=== PATIENT | female | born 1995 | race Caucasian/White ===

== ENCOUNTER 2016-12-06 22:16 | Emergency (ER) | payer BC ==
[~2016-12-06 22:16] MED LIST: ALPR.5 PO; LO LTAB PO; MONT10TA2 PO; ZOLO50TA PO; ZYRT10CA PO
[2016-12-06 22:18] VITALS: BP 134/78; PULSE 99; RESP 16; TEMP 98.7; O2SAT 100
[2016-12-06] MEDS ORDERED: CETI10CH CHEW (22:46)
[2016-12-06] MEDS ORDERED: PHEN-556 PO (22:46)
[2016-12-06] MEDS ORDERED: PENI500T PO (22:57)
[2016-12-06] MEDS ORDERED: PENICILLIN V POTASSIUM 500 MG TAB PO ONE (23:00)
--- NOTE | 2016-12-06 23:02 | PD ---
HPI Chief Complaint: ENT Complaint Time Seen by Provider: 22:59 Travel History International Travel<30 days: No Contact w/Intl Traveler<30days: No Traveled to known affect area: No History of Present Illness HPI 21-year-old white female presents to emergency department with a one-day history of sore throat in white spots on her tonsils. She has had some sore tender lymph nodes in her neck. She denies any fever or chills. She states that she's had problems with strep throat in the past. No nausea vomiting. No abdominal pain or diarrhea. PFSH Past Medical History Narrative Medical Asthma, anxiety, weight gain Asthma: Yes Autoimmune Disease: No Blood Disorders: No Anxiety: No Depression: No Cardiovascular Problems: No Genitourinary: No Musculoskeletal: No Neurologic: No Respiratory: No Immunizations Current: Yes Tetanus Vaccination: < 5 Years ?: Not LMP: 11/21/69 : 3 Para: 1 : 2 Past Surgical History Appendectomy: Yes Section: Yes Other Surgery: No Social History Alcohol Use: No Tobacco Use: Yes Substance Use: No Allergies-Medications (Allergen,Severity, Reaction): Coded Allergies: No Known Allergies (Verified , 12/06/16) Reported Meds & Prescriptions Reported Meds & Active Scripts Active Penicillin V Potassium 500 Mg Tab 500 Mg PO Q12HR Reported Lomaira (Phentermine HCl) 8 Mg Tab 8 Mg PO DAILY Cetirizine (Cetirizine HCl) 10 Mg Chew 10 Mg CHEW DAILY Xanax (Alprazolam) 0.5 Mg Tab 0.5 Mg PO Q4H PRN Singulair (Montelukast Sodium) 10 Mg Tab 10 Mg PO HS Review of Systems Except as stated in HPI: all other systems reviewed are Neg Physical Exam Narrative GENERAL: Well-developed, well-nourished in no acute distress. Nontoxic appearing. HEAD: Normocephalic, atraumatic. EYES: Pupils equal round and reactive. Extraocular motions intact. No scleral icterus. No injection or drainage. ENT: TMs clear without erythema. The external auditory canals clear. Nose: clear . Posterior pharynx is erythematous with a positive and moist. No tonsillar edema with white exudate. Uvula midline. Airway patent. NECK: Trachea midline.Supple, nontender, moves head freely. No central bony tenderness or spasm. Positive tonsillar and cervical adenopathy. CARDIOVASCULAR: Regular rate and rhythm without murmurs, gallops, or rubs. RESPIRATORY: Clear to auscultation. Breath sounds equal bilaterally. No wheezes , rales, or rhonchi. GASTROINTESTINAL: Abdomen soft, non-tender, nondistended. No hepato-splenomegaly , or palpable masses. No guarding. EXTREMITIES: No clubbing, cyanosis, or edema. No joint tenderness, effusion, or edema noted. BACK: Nontender without deformity or crepitance. No flank tenderness. Data Data Last Documented VS Vital Signs Date Time Temp Pulse Resp B/P Pulse Ox O2 Delivery O2 Flow Rate FiO2 12/06/16 22:18 98.7 99 16 134/78 100 Room Air Orders Penicillin V Potassium (Veetids) (12/06/16 23:00) MDM Medical Decision Making Medical Screen Exam Complete: Yes Emergency Medical Condition: Yes Medical Record Reviewed: Yes Differential Diagnosis MDM: High Differential diagnoses: Strep throat, viral pharyngitis, mono, peritonsillar abscess, retropharyngeal abscess, Ernie's angina Narrative Course Patient's given Pen-Vee K 1 g by mouth. This is acute exudative pharyngitis Diagnosis Primary Impression: acute exudative pharyngitis Patient Instructions: General Instructions Additional Instructions: Rest. Force fluids. Saltwater gargles. Tylenol and Advil. Chloraseptic [place] Cepastat lozenge. Pen-Vee K. Follow-up with a primary care doctor in one week. Return to the ER if any problems. Med/Other Pt SpecificInfo: Prescription(s) given Scripts Penicillin V Potassium 500 Mg [id number] Mg PO Q12HR #20 TAB Prov:Marcos Montenegro MD 12/06/16 Disposition: 01 DISCHARGE HOME Condition: Stable Carlton Carmona Dec 06, 2016 23:02
== END 2016-12-06 23:53 | disposition home or self-care (01) ==
LOC: NEPD 22:16
DX: J02.9 Acute pharyngitis, unspecified (principal); Z72.0 Tobacco use
CPT/HCPCS: 99283

== ENCOUNTER 2017-04-05 11:49 | Emergency (ER) | payer BC ==
[~2017-04-05] VITALS: Ht 157.5 cm; Wt 58.3 kg
[~2017-04-05 11:49] MED LIST changes: +CETI10CH CHEW; -LO LTAB PO; -MONT10TA2 PO; +PREN1CAP20 PO; +TERC0.4C2 VAGINAL; -ZOLO50TA PO; -ZYRT10CA PO
[2017-04-05 12:06] VITALS: BP 135/66; PULSE 110; RESP 18; TEMP 98.6; O2SAT 100
[2017-04-05] MEDS ORDERED: IBUP1TAB5 PO (12:13)
[2017-04-05 12:56] LABS: BLOOD, URINE LARGE (NEG); GLUCOSE,URINE NEG (NEG); KETONE, URINE NEG (NEG); NITRITE,URINE NEG (NEG); PH, URINE 6.5 (5.0-8.5)
[2017-04-05] MEDS ORDERED: SODIUM CHLOR 0.9% 1000 ML INJ 1,000 ML IV STA (13:03)
[2017-04-05 13:06] LABS: METHOD OF COLLECTION VOIDED; URINE COLOR YELLOW (YELLW/STRAW)
--- NOTE | 2017-04-05 13:07 | PD ---
HPI Chief Complaint: Operations Manager/Coordinator Problem/Complaint Time Seen by Provider: 12:55 Travel History International Travel<30 days: No Contact w/Intl Traveler<30days: No Traveled to known affect area: No History of Present Illness HPI This 21-year-old female is complaining of lower abdominal crampy pain and vaginal bleeding. SHe says she passed a clot this morning. She had a termination of done March 25 in [place]. She is not sure how was done. She was put to sleep for the procedure. She was 10 weeks and 4 days at that time. She's been having some bleeding since then. It was done at the [facility] in [place] she had a 2 years ago March. She has had 2 prior terminations of . She was feeling lightheaded this morning. She is not aware of fever. She is having crampy lower abdominal pain PFSH Past Medical History Asthma: Yes Autoimmune Disease: No Blood Disorders: No Anxiety: No Depression: No Cardiovascular Problems: No Genitourinary: No Musculoskeletal: No Neurologic: No Respiratory: Yes (seasonal allergies) Immunizations Current: Yes ?: Not LMP: 12/13/16 : 3 Para: 1 : 2 Past Surgical History Appendectomy: Yes Section: Yes Other Surgery: No Social History Alcohol Use: No Tobacco Use: Yes Substance Use: No Allergies-Medications (Allergen,Severity, Reaction): Coded Allergies: No Known Allergies (Verified Adverse Reaction, Unknown, 04/05/17) Reported Meds & Prescriptions Reported Meds & Active Scripts Active Reported Ibuprofen 400 Mg Tab 400 Mg PO ONCE PRN Cetirizine (Cetirizine HCl) 10 Mg Chew 10 Mg CHEW DAILY Xanax (Alprazolam) 0.5 Mg Tab 0.5 Mg PO Q4H PRN Review of Systems General / Constitutional: No: Fever, Chills Eyes: No: Diploplia, Blurred Vision HENT: No: Headaches Cardiovascular: No: Chest Pain or Discomfort, Palpitations Respiratory: No: Cough, Shortness of Breath Gastrointestinal: No: Nausea Genitourinary: Positive: Vaginal Bleeding Musculoskeletal: No: Myalgias, Arthralgias Skin: No Rash, No Itching Neurologic: No: Weakness, Dizziness Hematologic/Lymphatic: No: Easy Bruising Physical Exam Narrative GENERAL: Well-developed female SKIN: Focused skin assessment warm/dry. HEAD: Atraumatic. Normocephalic. EYES: Pupils equal and round. No scleral icterus. No injection or drainage. ENT: No nasal bleeding or discharge. Mucous membranes pink and moist. NECK: Trachea midline. No JVD. CARDIOVASCULAR: Regular rate and rhythm. No murmur appreciated. RESPIRATORY: No accessory muscle use. Clear to auscultation. Breath sounds equal bilaterally. GASTROINTESTINAL: Abdomen soft, non-tender, nondistended. Hepatic and splenic margins not palpable. STAFF SCIENTIST: There is some blood coming from the cervical os. The uterus is not palpably enlarged MUSCULOSKELETAL: No obvious deformities. No clubbing. No cyanosis. No edema. NEUROLOGICAL: Awake and alert. No obvious cranial nerve deficits. Motor grossly within normal limits. Normal speech. PSYCHIATRIC: Appropriate mood and affect; insight and judgment normal. Data Data Last Documented VS Vital Signs Date Time Temp Pulse Resp B/P (MAP) Pulse Ox O2 Delivery O2 Flow Rate FiO2 04/05/17 15:08 102 16 104/55 (71) 100 Room Air 04/05/17 12:06 98.6 Orders Orders Urinalysis - C+S If Indicated (04/05/17 12:38) Ed Urine Pregnancytest Poc (04/05/17 12:38) Complete Blood Count With Diff (04/05/17 13:03) Prothrombin Time / Inr (Pt) (04/05/17 13:03) Act Partial Throm Time (Ptt) (04/05/17 13:03) Beta Hcg (Quant/Titer) (04/05/17 13:03) Type And Screen (04/05/17 13:03) Sodium Chlor 0.9% 1000 Ml Inj (Ns 1000 M (04/05/17 13:03) Us Pelvis Comp Operations Manager/Coordinator/Non-Preg (04/05/17 13:21) Ondansetron Inj (Zofran Inj) (04/05/17 13:30) Morphine Inj (Morphine Inj) (04/05/17 13:30) Doxycycline (Vibramycin) (04/05/17 14:45) Morphine Inj (Morphine Inj) (04/05/17 15:00) Labs Laboratory Tests Test 04/05/17 12:45 04/05/17 13:30 Urine Collection Type VOIDED Urine Color YELLOW Urine Turbidity HAZY Urine pH 6.5 Urine Specific [place] 1.027 Urine Protein TRACE mg/dL Urine Glucose (UA) NEG mg/dL Urine Ketones NEG mg/dL Urine Occult Blood LARGE Urine Nitrite NEG Urine Bilirubin NEG Urine Leukocyte Esterase NEG Urine RBC INNUM /hpf Urine WBC 3-5 /hpf Urine Squamous Epithelial Cells 0-2 /hpf Urine Calcium Oxalate Crystals RARE /hpf Urine Bacteria FEW /hpf Microscopic Urinalysis Comment CULT NOT INDICATED White Blood Count 20.1 TH/MM3 Red Blood Count 3.75 MIL/MM3 Hemoglobin 11.0 GM/DL Hematocrit 33.7 % Mean Corpuscular Volume 90.0 FL Mean Corpuscular Hemoglobin 29.4 PG Mean Corpuscular Hemoglobin Concent 32.7 % Red Cell Distribution Width 11.9 % Platelet Count 374 TH/MM3 Mean Platelet Volume 7.2 FL Neutrophils (%) (Auto) 84.5 % Lymphocytes (%) (Auto) 6.6 % Monocytes (%) (Auto) 4.8 % Eosinophils (%) (Auto) 3.7 % Basophils (%) (Auto) 0.4 % Neutrophils # (Auto) 17.0 TH/MM3 Lymphocytes # (Auto) 1.3 TH/MM3 Monocytes # (Auto) 1.0 TH/MM3 Eosinophils # (Auto) 0.7 TH/MM3 Basophils # (Auto) 0.1 TH/MM3 CBC Comment DIFF FINAL Differential Comment Prothrombin Time 11.2 SEC Prothromb Time International Ratio 1.1 RATIO Activated Partial Thromboplast Time 27.8 SEC Human Chorionic Gonadotropin, Quant 231 MIU/ML [facility] Medical Decision Making Medical Screen Exam Complete: Yes Emergency Medical Condition: Yes Medical Record Reviewed: Yes Differential Diagnosis Differential includes retained products Narrative Course Hemoglobin is 11 with a white count of 20,000. I have discussed the case with Dr. Gonzalez. She recommends Methergine 0.2 every 6 times one day and doxycycline twice daily for a week. Ultrasound shows endometrial thickening with filling defects consistent with either thrombus or retained products. Patient is to follow-up with Dr. Gonzalez Diagnosis Primary Impression: Vaginal bleeding Scripts Hydrocodone-Acetaminophen (Hydrocodone-Acetaminophen) 5-325 mg Tab 1 TAB PO Q4H Y for PAIN, #15 TAB 0 Refills Prov: Rl Younger MD 04/05/17 Doxycycline Hyclate (Doxycycline Hyclate) 100 Mg Cap 100 MG PO BID for Infection for 14 Days, #28 CAP 0 Refills Prov: Rl Younger MD 04/05/17 Methylergonovine (Methergine) 0.2 Mg Tab 0.2 MG PO QID for Prevents Bleeding for 2 Days, TAB 0 Refills Prov: Rl Younger MD 04/05/17 Disposition: 01 DISCHARGE HOME Condition: Stable Rl Younger MD Apr 05, 2017 13:07
[2017-04-05 13:09] LABS: BACTERIA, URINE FEW /hpf; CALCIUM OXALATE CRYSTALS,URINE RARE /hpf; COMMENT (UR) CULT NOT INDICATED; CULTURE IF INDICATED CULT NOT INDICATED; RBC, URINE INNUM /hpf (0-3); SQUAMOUS EPITHELIAL CELL URINE 0-2 /hpf (0-5)
[2017-04-05] MEDS ORDERED: MORPHINE SULFATE 4 MG/ML INJ IV PUSH ONE ×2 (13:30→15:00)
[2017-04-05] MEDS ORDERED: ONDANSETRON HCL 4 MG/2 ML VIAL IV PUSH ONE (13:30)
[2017-04-05 13:41] LABS: BASOPHIL # 0.1 TH/MM3 (0-0.2); BASOPHIL % 0.4 % (0.0-2.0); EOSINOPHIL # 0.7 TH/MM3 (0-0.4); EOSINOPHIL % 3.7 % (0.0-4.0); HEMATOCRIT 33.7 % (35.0-46.0); HEMO FLAGS DIFF FINAL; LYMPH % 6.6 % (9.0-44.0); LYMPHOCYTE # 1.3 TH/MM3 (1.0-4.8); MEAN CORPUSCULAR HEMOGLOBIN 29.4 PG (27.0-34.0); MEAN CORPUSCULAR HGB CONC 32.7 % (32.0-36.0); MONO % 4.8 % (0.0-8.0); NEUT % 84.5 % (16.0-70.0); PLATELET COUNT 374 TH/MM3 (150-450); RED BLOOD COUNT 3.75 MIL/MM3 (4.00-5.30); RED CELL DISTRIBUTION WIDTH 11.9 % (11.6-17.2); WHITE BLOOD COUNT 20.1 TH/MM3 (4.0-11.0)
[2017-04-05 13:53] VITALS: BP 105/65; PULSE 100; RESP 16; O2SAT 100
[2017-04-05 13:54] LABS: APTT (PATIENT) 27.8 SEC (24.3-30.1); INTERNATIONAL NORMALIZED RATIO 1.1 RATIO; PROTHROMBIN TIME - PATIENT 11.2 SEC (9.8-11.6)
[2017-04-05 13:59] LABS: BETA HCG QUANT 231 MIU/ML (0-5)
[2017-04-05 14:45] VITALS: BP 104/65; PULSE 110; RESP 12; O2SAT 98
[2017-04-05] MEDS ORDERED: METHYLERGONOVINE MALEATE 0.2 MG TAB PO ONE (14:45)
[2017-04-05] MEDS ORDERED: DOXYCYCLINE HYCLATE 100 MG CAP PO ONE (14:45)
[2017-04-05 15:08] VITALS: BP 104/55; PULSE 102; RESP 16; O2SAT 100
--- NOTE | 2017-04-05 15:12 | RADRPT ---
EXAM DATE/TIME: 04/05/2017 14:02 [facility] COMPARISON: No previous studies available for comparison. INDICATIONS : Bleeding and pelvic pain following recent 03/25. MEDICAL HISTORY : Asthma. Tobacco use. Depression. Anxiety. SURGICAL HISTORY : Appendectomy. section. ENCOUNTER: Initial ACUITY: 2 weeks PAIN SCORE: 3/10 LOCATION: Bilateral pelvis MEASUREMENTS: UTERUS: 13.0 x 5.0 x 8.6 cm ENDOMETRIAL STRIPE: >20 mm RIGHT OVARY: 3.7 x 2.1 x 2.6 cm LEFT OVARY: 3.6 x 1.7 x 2.5 cm FINDINGS: UTERUS: Endometrial thickening remains evident. Filling defect within the endometrial canal are identified. RIGHT OVARY: Ovary contains no mass or significant cystic lesion. LEFT OVARY: Ovary contains no mass or significant cystic lesion. MISCELLANEOUS: No free fluid. CONCLUSION: 1. Irregular endometrial thickening with filling defects within the endometrial canal. This is charac teristic of either post intervention thrombus or retained products. 2. Normal appearing ovaries. 3. No extrauterine fluid or mass. Jerrod Arceo MD on April 05, 2017 at 15:05 Board Certified Radiologist. This report was verified electronically.
[2017-04-05] MEDS ORDERED: DOXY100C PO (15:25)
[2017-04-05] MEDS ORDERED: HYDR-3516 PO (15:25)
[2017-04-05] MEDS ORDERED: METH-703 PO (15:25)
[2017-04-05 15:44] VITALS: BP 98/52; PULSE 98; RESP 16; O2SAT 100
== END 2017-04-05 15:57 | disposition home or self-care (01) ==
LOC: PHED 11:49
DX: O04.6 Delayed or excessive hemorrhage following (induced) termination of pregnancy (principal); R10.2 Pelvic and perineal pain
CPT/HCPCS: 76856; 81001; 84702; 84703; 85025; 85610; 85730; 86850; 86900; 86901; 96361; 96374; 96375; 96376; 99285; J2270; J2405; J7030

== ENCOUNTER 2017-04-26 15:20 | Emergency (ER) | payer BC ==
[~2017-04-26] VITALS: Ht 157.5 cm; Wt 56.0 kg
[~2017-04-26 15:20] MED LIST changes: +DOXY100C PO; +HYDR-3516 PO; +IBUP1TAB5 PO; +METH-703 PO; -PREN1CAP20 PO; -TERC0.4C2 VAGINAL
[2017-04-26 15:25] VITALS: BP 113/56; PULSE 107; RESP 16; TEMP 97.7; O2SAT 100
[2017-04-26] MEDS ORDERED: PHEN-556 PO (15:31)
--- NOTE | 2017-04-26 17:52 | RADRPT ---
EXAM DATE/TIME: 04/26/2017 17:02 [facility] COMPARISON: No previous studies available for comparison. INDICATIONS : Cough. MEDICAL HISTORY : None. SURGICAL HISTORY : None. ENCOUNTER: Initial ACUITY: 2 days PAIN SCORE: 0/10 LOCATION: Bilateral chest FINDINGS: The lungs are clear without infiltrate, nodule, or mass. There is no appreciable pleural effusion fo r technique. Heart and mediastinum are unremarkable. CONCLUSION: No acute cardiopulmonary disease. Darin Peña MD on April 26, 2017 at 17:50 Board Certified Radiologist. This report was verified electronically.
[2017-04-26] MEDS ORDERED: PRED20 PO (17:58)
[2017-04-26] MEDS ORDERED: ALBUAER3 INH (17:58)
--- NOTE | 2017-04-26 17:58 | PD ---
HPI Chief Complaint: Cold / Flu Symptoms Time Seen by Provider: 16:59 Travel History International Travel<30 days: No Contact w/Intl Traveler<30days: No Traveled to known affect area: No History of Present Illness HPI 21-year-old female here with cough and wheezing times one week. She reports she has been treated recently with azithromycin but symptoms have persisted. She is a smoker. She reports she has had to use albuterol inhalers and steroids in the past. Symptom severity is mild to moderate. No aggravating or alleviating factors. PFSH Past Medical History Asthma: Yes Autoimmune Disease: No Blood Disorders: No Anxiety: No Depression: No Cardiovascular Problems: No Diminished Hearing: No Genitourinary: No Musculoskeletal: No Neurologic: No Respiratory: Yes (ASTHMA) Immunizations Current: Yes Tetanus Vaccination: < 5 Years ?: Not : 3 Para: 1 : 2 Past Surgical History Appendectomy: Yes Section: Yes Other Surgery: No Social History Alcohol Use: No Tobacco Use: Yes Substance Use: No Allergies-Medications (Allergen,Severity, Reaction): Coded Allergies: No Known Allergies (Verified Adverse Reaction, Unknown, 04/26/17) Reported Meds & Prescriptions Reported Meds & Active Scripts Active Proair Hfa 8.5 GM Inh (Albuterol Sulfate) 90 Mcg/Act Aer 2 Puff INH Q4-6H PRN 108 mcg/actuation Prednisone 20 Mg Tab 40 Mg PO DAILY Take 40 mg (2 tablets) daily for 5 days Reported Lomaira (Phentermine HCl) 8 Mg Tab 8 Mg PO DAILY Cetirizine (Cetirizine HCl) 10 Mg Chew 10 Mg CHEW DAILY Xanax (Alprazolam) 0.5 Mg Tab 0.5 Mg PO Q4H PRN Review of Systems Except as stated in HPI: all other systems reviewed are Neg Eyes: No: Visual changes HENT: No: Headaches Cardiovascular: No: Chest Pain or Discomfort Respiratory: Positive: Cough, Wheezing Gastrointestinal: No: Abdominal Pain Genitourinary: No: Dysuria Physical Exam Narrative GENERAL: Alert female. Well appearing. SKIN: Warm and dry. HEAD: Normocephalic. EYES: . No injection or drainage. NECK: Supple, trachea midline. CARDIOVASCULAR: Regular rate and rhythm RESPIRATORY: Breath sounds equal bilaterally. No accessory muscle use. Mild expiratory wheezes that clears with cough. GASTROINTESTINAL: Abdomen soft, non-tender, nondistended. Data Data Last Documented VS Vital Signs Date Time Temp Pulse Resp B/P (MAP) Pulse Ox O2 Delivery O2 Flow Rate FiO2 04/26/17 15:25 97.7 107 16 113/56 (75) 100 Orders Orders Chest, Single Ap (04/26/17 ) Ed Discharge Order (04/26/17 17:58) MDM Medical Decision Making Medical Screen Exam Complete: Yes Emergency Medical Condition: Yes Interpretation(s) Normal chest x-ray Differential Diagnosis Pneumonia, bronchitis, influenza, reactive airway Narrative Course 21-year-old female here with cough and wheezing. She reports she has been treated recently with azithromycin but symptoms have persisted. On exam she has mild expiratory wheezes. She is a smoker. She is nontoxic appearing. Her vital signs are stable. Her chest x-ray is normal. She'll be treated with short dose of steroids and bronchodilators instructed to follow-up with her primary doctor. Diagnosis Primary Impression: URI (upper respiratory infection) Qualified Codes: J06.9 - Acute upper respiratory infection, unspecified Additional Impression: Reactive airway disease Qualified Codes: J45.909 - Unspecified asthma, uncomplicated Referrals: Primary Care Physician Scripts Albuterol 8.5 GM Inh (Proair Hfa 8.5 GM Inh) 90 Mcg/Act Aer 2 PUFF INH Q4-6H Y for SHORTNESS OF BREATH, #1 INHALER 0 Refills 108 mcg/actuation Prov: Kirsty Mason 04/26/17 Prednisone (Prednisone) 20 Mg Tab 40 MG PO DAILY, #8 TAB 0 Refills Take 40 mg (2 tablets) daily for 5 days Prov: Kirsty Mason 04/26/17 Disposition: 01 DISCHARGE HOME Condition: Stable Kisrty Mason Apr 26, 2017 17:58
== END 2017-04-26 18:04 | disposition home or self-care (01) ==
LOC: PHEFT 15:20
DX: J06.9 Acute upper respiratory infection, unspecified (principal); J45.909 Unspecified asthma, uncomplicated; Z72.0 Tobacco use
CPT/HCPCS: 71045; 99284

== ENCOUNTER 2017-08-13 21:48 | Emergency (ER) | payer SELFPAY ==
[~2017-08-13] VITALS: Ht 157.5 cm; Wt 52.0 kg
[~2017-08-13 21:48] MED LIST changes: +ALBUAER3 INH; -DOXY100C PO; -HYDR-3516 PO; -IBUP1TAB5 PO; -METH-703 PO; +PHEN-556 PO; +PRED20 PO
[2017-08-13 22:18] VITALS: BP 122/66; PULSE 101; RESP 16; TEMP 97.4; O2SAT 100
[2017-08-14 00:27] VITALS: BP 142/80; PULSE 104; RESP 16; O2SAT 98
[2017-08-14] MEDS ORDERED: TETANUS/DIPHTHERIA TOXOID ADULT 0.5 ML VIAL IM ONE (00:30)
[2017-08-14] MEDS ORDERED: ACETAMINOPHEN/HYDROcodone 325 MG/5 MG TAB PO ONE (00:30)
--- NOTE | 2017-08-14 00:33 | PD ---
HPI Chief Complaint: Syncope/Near-Syncope Time Seen by Provider: 00:25 Travel History International Travel<30 days: No Contact w/Intl Traveler<30days: No Traveled to known affect area: No History of Present Illness HPI Patient is a 21-year-old female she was dying her hair with her mother in the bathroom when she suddenly stared off into space and fell forward into the mother and then went backwards and slammed her head on the kitchen marble sink. Took about 2 minutes for her to come back to herself excessive bleeding then she arrived in family says they were upset because they were in the waiting room. Patient in the exam room has a linear laceration at the occiput area on her right scalp bleeding has stopped she denies having had any chest pain no alcohol no intoxicants prior to the syncopal episode possibly vasovagal patient is awake alert acting herself in the ER main complaint is localized head pain from the syncopal episode denies any vomit fluid loss no diarrhea no fevers no coughs PFSH Past Medical History Asthma: Yes Autoimmune Disease: No Blood Disorders: No Anxiety: No Depression: No Cardiovascular Problems: No Diminished Hearing: No Genitourinary: No Musculoskeletal: No Neurologic: No Respiratory: Yes (ASTHMA) Immunizations Current: Yes ?: Not : 3 Para: 1 : 2 Past Surgical History Appendectomy: Yes Section: Yes Other Surgery: No Social History Alcohol Use: No Tobacco Use: Yes (1 PPD) Substance Use: No Allergies-Medications (Allergen,Severity, Reaction): Coded Allergies: No Known Allergies (Verified Adverse Reaction, Unknown, 08/13/17) Reported Meds & Prescriptions Reported Meds & Active Scripts Active Bacitracin Topical 500 Unit/Gm Oint 1 Applic TOPICAL BID Tramadol (Tramadol HCl) 50 Mg Tab 50 Mg PO Q6H PRN Ibuprofen 600 Mg Tab 600 Mg PO Q6H PRN Proair Hfa 8.5 GM Inh (Albuterol Sulfate) 90 Mcg/Act Aer 2 Puff INH Q4-6H PRN 108 mcg/actuation Prednisone 20 Mg Tab 40 Mg PO DAILY Take 40 mg (2 tablets) daily for 5 days Reported Lomaira (Phentermine HCl) 8 Mg Tab 8 Mg PO DAILY Cetirizine (Cetirizine HCl) 10 Mg Chew 10 Mg CHEW DAILY Xanax (Alprazolam) 0.5 Mg Tab 0.5 Mg PO Q4H PRN Review of Systems Except as stated in HPI: all other systems reviewed are Neg Physical Exam Narrative GENERAL: Awake alert no signs of sepsis no altered mental status SKIN: Warm and dry. HEAD: + traumatic. Normocephalic. Patient has a linear laceration to the right occiput area about 3 cm. Patient does not have bleeding at this time EYES: Pupils equal and round. No scleral icterus. No injection or drainage. ENT: No nasal bleeding or discharge. Mucous membranes pink and moist. NECK: Trachea midline. No JVD. CARDIOVASCULAR: Regular rate and rhythm. RESPIRATORY: No accessory muscle use. Clear to auscultation. Breath sounds equal bilaterally. GASTROINTESTINAL: Abdomen soft, non-tender, nondistended. Hepatic and splenic margins not palpable. MUSCULOSKELETAL: Extremities without clubbing, cyanosis, or edema. No obvious deformities. NEUROLOGICAL: Awake and alert. No obvious cranial nerve deficits. Motor grossly within normal limits. Five out of 5 muscle strength in the arms and legs. Normal speech. PSYCHIATRIC: Appropriate mood and affect; insight and judgment normal. Data Data Last Documented VS Vital Signs Date Time Temp Pulse Resp B/P (MAP) Pulse Ox O2 Delivery O2 Flow Rate FiO2 08/14/17 01:28 08/14/17 00:27 14 98 Room Air 08/14/17 00:27 104 08/13/17 22:18 97.4 Orders Orders Ed Urine Pregnancytest Poc (08/14/17 00:26) Ct Brain W/O Iv Contrast(Rout) (08/14/17 ) Ct Cerv Spine W/O Contrast (08/14/17 ) Tetanus/Diphtheria Tox Adult (Tetanus/Di (08/14/17 00:30) Acetamin-Hydrocod 325-5 Mg ([place] 5-325 (08/14/17 00:30) Lidocai-Epi 2%-1:100,000 Inj (Xylocaine- (08/14/17 01:00) Ed Discharge Order (08/14/17 01:37) [facility] Medical Decision Making Medical Screen Exam Complete: Yes Emergency Medical Condition: Yes Differential Diagnosis Differential diagnosis includes vasovagal syncope versus hypoglycemia versus head laceration versus injury to cervical spine versus cardiogenic syncope versus neurological syncope other Narrative Course CT of head and cervical spine is negative patient is given a lidocaine with epi 2% for anesthesia 3 cc injected into the scalp through the open wound with good anesthesia then 5 mekhi were placed into the scalp with good wound approximation patient tolerated the procedure well discharged Polysporin applied to the wound mekhi out in 10 days Procedures Procedure Narrative Patient is given anesthesia with 3 cc lidocaine with epi 2% for anesthesia injected into the scalp through the open wound. With good anesthesia then 5 mekhi were placed into the 4 cm laceration to the occipital scalp with good wound approximation. Patient tolerated the procedure well. Polysporin applied to the wound. Emkhi out in 10 days Diagnosis Primary Impression: Laceration of scalp Qualified Codes: S01.01XA - Laceration without foreign body of scalp, initial encounter Patient Instructions: General Instructions, Laceration (ED) Additional Instructions: Keep head dry for the next 2 days. You can gently wash the area. Do not submerge her head underwater until the mekhi come out in 10 days apply bacitracin twice a day to the laceration area and have the mekhi removed in 10 days. Follow-up with your own primary care doctor your CAT scans of your head and neck were normal no injury Scripts Bacitracin Topical (Bacitracin Topical) 500 Unit/Gm Oint 1 APPLIC TOPICAL BID for Infection, #30 GM 0 Refills Prov: Favian Wells MD 08/14/17 Tramadol (Tramadol) 50 Mg Tab 50 MG PO Q6H Y for PAIN, #10 TAB 0 Refills Prov: Favian Wells MD 08/14/17 Ibuprofen (Ibuprofen) 600 Mg Tab 600 MG PO Q6H Y for Pain/Inflammation, #40 TAB 0 Refills Prov: Favian Wells MD 08/14/17 Disposition: 01 DISCHARGE HOME Condition: Good Favian Wells MD Aug 14, 2017 00:33
--- NOTE | 2017-08-14 00:57 | RADRPT ---
EXAM DATE/TIME: 08/14/2017 00:47 [facility] COMPARISON: No previous studies available for comparison. INDICATIONS : Trauma; fall. RADIATION DOSE: 32.28 CTDIvol (mGy) MEDICAL HISTORY : Asthma SURGICAL HISTORY : Appendectomy. section. ENCOUNTER: Initial ACUITY: 1 day PAIN SCALE: 5/10 LOCATION: cranial TECHNIQUE: Multiple contiguous axial images were obtained of the head. Using automated exposure control and adj ustment of the mA and/or kV according to patient size, radiation dose was kept as low as reasonably a chievable to obtain optimal diagnostic quality images. DICOM format image data is available electro nically for review and comparison. FINDINGS: CEREBRUM: The ventricles are normal for age. No evidence of midline shift, mass lesion, hemorrhage or acute in farction. No extra-axial fluid collections are seen. POSTERIOR FOSSA: The cerebellum and brainstem are intact. The 4th ventricle is midline. The cerebellopontine angle i s unremarkable. EXTRACRANIAL: The visualized portion of the orbits is intact. Scattered mucosal thickening involving ethmoid air ce lls bilaterally with small air fluid level within the right sphenoid sinus. SKULL: The calvaria is intact. No evidence of skull fracture. CONCLUSION: 1. No acute intracranial abnormality. 2. Chronic ethmoid sinus disease bilaterally. Alfredo Rueda Jr., MD on August 14, 2017 at 0:54 Board Certified Radiologist. This report was verified electronically.
[2017-08-14] MEDS ORDERED: LIDOCAINE 2%/EPINEPHrine 1:100,000 20ML MDV NERV BLOCK ONE (01:00)
--- NOTE | 2017-08-14 01:05 | RADRPT ---
EXAM DATE/TIME: 08/14/2017 00:47 [place] COMPARISON: No previous studies available for comparison. INDICATIONS : Trauma; fall. RADIATION DOSE: 11.23 CTDIvol (mGy) MEDICAL HISTORY : Asthma SURGICAL HISTORY : Appendectomy. section. ENCOUNTER: Initial ACUITY: 1 day PAIN SCALE: 5/10 LOCATION: neck TECHNIQUE: Volumetric scanning of the cervical spine was performed. Multiplanar reconstructions in the sagittal, coronal and oblique axial planes were performed. Using automated exposure control and adjustment o f the mA and/or kV according to patient size, radiation dose was kept as low as reasonably achievable to obtain optimal diagnostic quality images. DICOM format image data is available electronically f or review and comparison. FINDINGS: VERTEBRAE: Normal vertebral body height. ALIGNMENT: No evidence of subluxation. C2-C3: The bony spinal canal is normal in size. No evidence of disc bulge or herniation. The neural forami na are bilaterally patent. C3-C4: The bony spinal canal is normal in size. No evidence of disc bulge or herniation. The neural forami na are bilaterally patent. C4-C5: The bony spinal canal is normal in size. No evidence of disc bulge or herniation. The neural forami na are bilaterally patent. C5-C6: The bony spinal canal is normal in size. No evidence of disc bulge or herniation. The neural forami na are bilaterally patent. C6-C7: The bony spinal canal is normal in size. No evidence of disc bulge or herniation. The neural forami na are bilaterally patent. C7-T1: The bony spinal canal is normal in size. No evidence of disc bulge or herniation. The neural forami na are bilaterally patent. CONCLUSION: Normal examination. Alfredo Rueda Jr., MD on August 14, 2017 at 1:01 Board Certified Radiologist. This report was verified electronically.
[2017-08-14] MEDS ORDERED: IBUP-232 PO (01:31)
[2017-08-14] MEDS ORDERED: TRAM50TA PO (01:31)
[2017-08-14] MEDS ORDERED: BACI500O9 TOPICAL (01:32)
--- NOTE | 2017-08-14 18:28 | EKG ---
Date Performed: 08/14/2017 Time Performed: 00:41:16 PTAGE: 21 years EKG: Sinus rhythm MARKED RIGHT AXIS DEVIATION INCOMPLETE RIGHT BUNDLE BRANCH BLOCK NONSPECIFIC ST ABNORMALITY IS SLIGH TLY MORE PROMINENT THAN PRIOR TRACING ABNORMAL ECG PREVIOUS TRACING : 12/19/2014 15.51 DOCTOR: Rodolfo Frazier Interpretating Date/Time 08/14/2017 18:27:07
== END 2017-08-14 01:56 | disposition home or self-care (01) ==
LOC: NEPE 21:48
DX: S01.01XA Laceration without foreign body of scalp, initial encounter (principal); W19.XXXA Unspecified fall, initial encounter; Y93.89 Activity, other specified; Y92.009 Unspecified place in unspecified non-institutional (private) residence as the place of occurrence of the external cause
CPT/HCPCS: 12002; 70450; 72125; 84703; 93005